=== PATIENT | female | born 1965 | race Caucasian/White ===

== ENCOUNTER → 2018-10-06 | Outpatient (CLI) | payer SELFPAY | LOC: M OUTALCOH 08:01 | PROVIDERS: ATTEND Psychiatry & Neurology Psychiatry | DX: Z03.89 Encounter for observation for other suspected diseases and conditions ruled out (principal) ==

== ENCOUNTER 2018-10-14 13:31 | Outpatient (RCR) | payer SELFPAY | END 2018-10-28 | LOC: M OUTALCOH 13:31 | PROVIDERS: ATTEND Psychiatry & Neurology Psychiatry | DX: Z03.89 Encounter for observation for other suspected diseases and conditions ruled out (principal) ==

== ENCOUNTER → 2020-07-03 | Outpatient (CLI) | payer SELFPAY | LOC: M OUTALCOH 07:49 | PROVIDERS: ATTEND Psychiatry & Neurology Psychiatry | DX: Z02.89 Encounter for other administrative examinations (principal) ==

== ENCOUNTER 2020-07-10 14:20 | Outpatient (RCR) | payer SELFPAY | END 2020-07-28 | LOC: M OUTALCOH 14:20 | PROVIDERS: ATTEND Psychiatry & Neurology Psychiatry | DX: Z03.89 Encounter for observation for other suspected diseases and conditions ruled out (principal) ==

== ENCOUNTER → 2021-03-15 | Outpatient (REF) | payer OTHER | LOC: M SFHCADAM 15:05 | PROVIDERS: ATTEND Physician Assistant | DX: F03.90 Unspecified dementia, unspecified severity, without behavioral disturbance, psychotic disturbance, mood disturbance, and anxiety (principal); Z98.84 Bariatric surgery status; F10.11 Alcohol abuse, in remission; Z13.220 Encounter for screening for lipoid disorders ==

== ENCOUNTER → 2021-03-29 | Outpatient (REF) | payer OTHER ==
[2021-03-29 13:59] LABS: BASO % 0.4 % (0.0-1.0); EOS % 0.4 % (0.0-3.0); HEMATOCRIT 42.6 % (36.0-47.0); HEMOGLOBIN 13.6 g/dl (12.0-15.5); LYMPH # 1.6 10^3/uL (1.5-5.0); LYMPH % 31.9 % (24.0-44.0); MEAN CORPUSCULAR HGB CONC 31.9 g/dl (32.0-36.5); MEAN CORPUSCULAR VOLUME 87.7 fl (80.0-96.0); MONO # 0.5 10^3/uL (0.0-0.8); MONO % 8.9 % (2.0-8.0); NEUTROPHILS % 58.2 % (36.0-66.0); PLATELET COUNT, AUTOMATED 208 10^3/uL (150-450); RED BLOOD COUNT 4.86 10^6/uL (4.00-5.40); WHITE BLOOD COUNT 5.1 10^3/uL (4.0-10.0)
[2021-03-29 14:36] LABS: ALBUMIN 3.9 GM/DL (3.2-5.2); ALT/SGPT 22 U/L (12-78); BILIRUBIN,TOTAL 0.6 MG/DL (0.2-1.0); BLOOD UREA NITROGEN 12 MG/DL (7-18); CALCIUM LEVEL 9.2 MG/DL (8.5-10.1); CARBON DIOXIDE LEVEL 30 MEQ/L (21-32); CHLORIDE LEVEL 108 MEQ/L (98-107); CHOLESTEROL LEVEL 184 MG/DL (<200); CHOLESTEROL RISK RATIO 2.453 (<5); CREATININE FOR GFR 0.81 MG/DL (0.55-1.30); FERRITIN 151 NG/ML (8-252); FREE T4 0.96 NG/DL (0.76-1.46); GLOMERULAR FILTRATION RATE > 60.0 (>51); GLUCOSE, FASTING 83 MG/DL (70-100); HDL CHOLESTEROL 75 MG/DL (>40); IRON (FE) 68 UG/DL (50-170); LDL CHOLESTEROL 95 MG/DL (<100); NON-HDL-C 109 MG/DL; PERCENT SATURATION 19.8 % (13.2-45.0); POTASSIUM SERUM 4.5 MEQ/L (3.5-5.1); SODIUM LEVEL 142 MEQ/L (136-145); TOTAL IRON BINDING CAPACITY 344 UG/DL (250-450); TOTAL PROTEIN 6.4 GM/DL (6.4-8.2); TRIGLYCERIDES LEVEL 69 MG/DL (<150)
[2021-03-29 15:20] LABS: TOTAL 25(OH) VITAMIN D 14.8 NG/ML (30.0-100.0)
[2021-03-29 15:22] LABS: FOLATE 12.1 NG/ML
[2021-03-29 15:35] LABS: VITAMIN B12 LEVEL 274 PG/ML
== END ==
LOC: M LABDRWAD 12:58
PROVIDERS: ATTEND Physician Assistant
DX: F03.90 Unspecified dementia, unspecified severity, without behavioral disturbance, psychotic disturbance, mood disturbance, and anxiety (principal); Z98.84 Bariatric surgery status; F10.11 Alcohol abuse, in remission; Z13.220 Encounter for screening for lipoid disorders

== ENCOUNTER → 2021-04-04 | Outpatient (CLI) | payer OTHER, SELFPAY ==
[~2021-04-04] MED LIST: PROHANCE 279.3MG/ML 15ML VIAL ONE
--- NOTE | 2021-04-04 10:42 | REPVR ---
PROCEDURE INFORMATION: Exam: MR Head Without and With Contrast Exam date and time: 04/04/2021 10:06 AM Age: 56 years old Clinical indication: Altered mental status/memory loss; Other: Dementia TECHNIQUE: Imaging protocol: MR of the head without and with intravenous contrast. Contrast material: PROHANCE; Contrast volume: 13 ml; Contrast route: INTRAVENOUS (IV); COMPARISON: No relevant prior studies available. FINDINGS: Brain: Examination reveals few tiny focal areas of increased T2 signal in bilateral frontal and parietal subcortical and deep white matter. These are nonspecific and could be secondary to chronic migraine headache, vasculitis, Lyme disease, demyelination and focal areas of chronic ischemia. No acute infarction, masses, midline shift or acute hemorrhage is seen. No acute intracranial abnormality is identified. There is no abnormal diffusion weighted signal intensity to suggest an acute ischemic event.The cortical ymles / white matter interfaces are preserved throughout the brain.Intracranial flow voids are well maintained. Cerebral ventricles: The ventricular system is not dilated and is appropriate for the patient's age. Bones/joints: Unremarkable. Paranasal sinuses: Normal as visualized. No acute sinusitis. Mastoid air cells: Normal as visualized. No mastoid effusion. Orbital cavity: Unremarkable. Soft tissues: Unremarkable. IMPRESSION: 1. Examination reveals few tiny focal areas of increased T2 signal in bilateral frontal and parietal subcortical and deep white matter. These are nonspecific and could be secondary to chronic migraine headache, vasculitis, Lyme disease, demyelination and focal areas of chronic ischemia. 2. No acute infarction, masses, midline shift or acute hemorrhage is seen. No acute intracranial abnormality is identified. No abnormal contrast enhancement is seen. Electronically signed by: Jose Wilson On 04/04/2021 10:42:15 AM
== END ==
LOC: M PLAIMG 08:57
PROVIDERS: ATTEND Physician Assistant
DX: F03.90 Unspecified dementia, unspecified severity, without behavioral disturbance, psychotic disturbance, mood disturbance, and anxiety (principal)

== ENCOUNTER → 2021-04-27 | Outpatient (REF) | payer OTHER | LOC: M SFHCADAM 11:24 | PROVIDERS: ATTEND Physician Assistant | DX: R93.89 Abnormal findings on diagnostic imaging of other specified body structures (principal) ==

== ENCOUNTER → 2022-06-19 | Outpatient (REF) | payer OTHER ==
[2022-06-19 13:31] LABS: HEMATOCRIT 41.6 % (36.0-47.0); HEMOGLOBIN 12.9 g/dl (12.0-15.5); MEAN CORPUSCULAR HEMOGLOBIN 26.8 pg (27.0-33.0); MEAN CORPUSCULAR VOLUME 86.3 fl (80.0-96.0); PLATELET COUNT, AUTOMATED 133 10^3/uL (150-450); RED BLOOD COUNT 4.82 10^6/uL (4.00-5.40)
[2022-06-19 13:53] LABS: HEMOGLOBIN A1c 5.2 % (4.0-6.0)
[2022-06-19 14:07] LABS: FREE T4 1.04 NG/DL (0.89-1.76)
[2022-06-19 14:11] LABS: ALBUMIN 3.7 G/DL (3.2-5.2); ALKALINE PHOSPHATASE 96 U/L (46-116); ALT/SGPT 21 U/L (7.0-40); AST/SGOT 24 U/L (<34); BILIRUBIN,TOTAL 0.3 MG/DL (0.3-1.2); BLOOD UREA NITROGEN 11 MG/DL (9-23); CALCIUM LEVEL 8.5 MG/DL (8.5-10.1); CARBON DIOXIDE LEVEL 27 MMOL/L (20-31); CHLORIDE LEVEL 107 MMOL/L (98-107); CHOLESTEROL LEVEL 158 MG/DL (<200); CHOLESTEROL RISK RATIO 2.38 (<5); CREATININE FOR GFR 0.76 MG/DL (0.55-1.30); GLOMERULAR FILTRATION RATE > 60.0 (>51); GLUCOSE, FASTING 79 MG/DL (60-100); HDL CHOLESTEROL 66.3 MG/DL (>40); LDL CHOLESTEROL 74.9 MG/DL (<100); NON-HDL-C 91.7 MG/DL; POTASSIUM SERUM 4.6 MMOL/L (3.5-5.1); SODIUM LEVEL 143 MMOL/L (136-145); TOTAL PROTEIN 6.5 G/DL (5.7-8.2); TRIGLYCERIDES LEVEL 84 MG/DL (<150); VITAMIN B12 LEVEL 607 PG/ML (211-911)
[2022-06-19 14:12] LABS: FOLATE 21.8 NG/ML (>5.4)
== END ==
LOC: M SFHCADAM 09:07
PROVIDERS: ATTEND Physician Assistant
DX: F03.90 Unspecified dementia, unspecified severity, without behavioral disturbance, psychotic disturbance, mood disturbance, and anxiety (principal); Z98.84 Bariatric surgery status; E55.9 Vitamin D deficiency, unspecified; E53.8 Deficiency of other specified B group vitamins; Z13.220 Encounter for screening for lipoid disorders; Z13.1 Encounter for screening for diabetes mellitus; R63.5 Abnormal weight gain

== ENCOUNTER → 2022-08-09 | Outpatient (REF) | payer OTHER | LOC: M SFHCADAM 12:34 | PROVIDERS: ATTEND Physician Assistant | DX: J06.9 Acute upper respiratory infection, unspecified (principal) ==

== ENCOUNTER → 2022-10-16 | Outpatient (REF) | payer OTHER | LOC: M SFHCADAM 13:47 | PROVIDERS: ATTEND Physician Assistant | DX: J02.9 Acute pharyngitis, unspecified (principal) ==

== ENCOUNTER → 2022-10-23 | Outpatient (REF) | payer OTHER | LOC: M SFHCADAM 13:01 | PROVIDERS: ATTEND Family Medicine | DX: J02.9 Acute pharyngitis, unspecified (principal) ==

== ENCOUNTER → 2023-04-08 | Outpatient (REF) | payer OTHER ==
[2023-04-08 13:49] LABS: HEMATOCRIT 43.2 % (36.0-47.0); HEMOGLOBIN 14.1 g/dl (12.0-15.5); MEAN CORPUSCULAR HEMOGLOBIN 28.4 pg (27.0-33.0); MEAN CORPUSCULAR HGB CONC 32.6 g/dl (32.0-36.5); MEAN CORPUSCULAR VOLUME 87.1 fl (80.0-96.0); PLATELET COUNT, AUTOMATED 234 10^3/uL (150-450); RED BLOOD COUNT 4.96 10^6/uL (4.00-5.40); WHITE BLOOD COUNT 5.3 10^3/uL (4.0-10.0)
[2023-04-08 14:09] LABS: ALBUMIN 4.2 G/DL (3.2-5.2); ALKALINE PHOSPHATASE 91 U/L (46-116); ALT/SGPT 34 U/L (7.0-40); AST/SGOT 23 U/L (<34); BILIRUBIN,TOTAL 0.5 MG/DL (0.3-1.2); BLOOD UREA NITROGEN 10 MG/DL (9-23); CALCIUM LEVEL 9.9 MG/DL (8.5-10.1); CARBON DIOXIDE LEVEL 29 MMOL/L (20-31); CHLORIDE LEVEL 106 MMOL/L (98-107); CREATININE FOR GFR 0.71 MG/DL (0.55-1.30); GLOMERULAR FILTRATION RATE > 60.0 (>51); GLUCOSE, FASTING 86 MG/DL (60-100); POTASSIUM SERUM 4.4 MMOL/L (3.5-5.1); SODIUM LEVEL 139 MMOL/L (136-145); TOTAL PROTEIN 6.8 G/DL (5.7-8.2)
[2023-04-08 14:11] LABS: FOLATE 22.3 NG/ML (>5.4); TOTAL 25(OH) VITAMIN D 62.1 NG/ML (20.0-100.0)
[2023-04-08 14:14] LABS: VITAMIN B12 LEVEL > 2000 PG/ML (211-911)
== END ==
LOC: M LABDRWAD 12:47
PROVIDERS: ATTEND Physician Assistant
DX: F51.01 Primary insomnia (principal); Z98.84 Bariatric surgery status; E55.9 Vitamin D deficiency, unspecified; F03.90 Unspecified dementia, unspecified severity, without behavioral disturbance, psychotic disturbance, mood disturbance, and anxiety; F10.11 Alcohol abuse, in remission

== ENCOUNTER → 2024-01-12 | Outpatient (REF) | payer MEDICAID, OTHER ==
[2024-01-12 06:37] LABS: HEMOGLOBIN 11.4 g/dl (12.0-15.5); MEAN CORPUSCULAR HEMOGLOBIN 28.9 pg (27.0-33.0); MEAN CORPUSCULAR HGB CONC 33.5 g/dl (32.0-36.5); MEAN CORPUSCULAR VOLUME 86.3 fl (80.0-96.0); PLATELET COUNT, AUTOMATED 149 10^3/uL (150-450); RED BLOOD COUNT 3.94 10^6/uL (4.00-5.40); WHITE BLOOD COUNT 4.6 10^3/uL (4.0-10.0)
[2024-01-12 06:59] LABS: ALBUMIN 2.9 G/DL (3.2-5.2); ALKALINE PHOSPHATASE 77 U/L (46-116); ALT/SGPT 24 U/L (7.0-40); AST/SGOT 21 U/L (<34); BILIRUBIN,TOTAL 0.6 MG/DL (0.3-1.2); BLOOD UREA NITROGEN 19 MG/DL (9-23); CARBON DIOXIDE LEVEL 25 MMOL/L (20-31); CHLORIDE LEVEL 111 MMOL/L (98-107); CREATININE FOR GFR 0.94 MG/DL (0.55-1.30); GLOMERULAR FILTRATION RATE > 60.0 (>51); GLUCOSE, FASTING 80 MG/DL (60-100); POTASSIUM SERUM 4.4 MMOL/L (3.5-5.1); SODIUM LEVEL 141 MMOL/L (136-145)
[2024-01-12 07:00] LABS: TOTAL 25(OH) VITAMIN D 51.4 NG/ML (20.0-100.0)
[2024-01-12 07:01] LABS: THYROID STIMULATING HORMONE 2.936 uIU/ML (0.55-4.78); VITAMIN B12 LEVEL 863 PG/ML (211-911)
== END ==
LOC: SKLAB6 07:00
PROVIDERS: ATTEND Internal Medicine
DX: E55.9 Vitamin D deficiency, unspecified (principal); E53.8 Deficiency of other specified B group vitamins; F03.90 Unspecified dementia, unspecified severity, without behavioral disturbance, psychotic disturbance, mood disturbance, and anxiety

== ENCOUNTER → 2024-01-26 | Outpatient (REF) | payer OTHER ==
[2024-01-26 15:44] LABS: HEMOGLOBIN 12.5 g/dl (12.0-15.5); MEAN CORPUSCULAR HEMOGLOBIN 29.2 pg (27.0-33.0); MEAN CORPUSCULAR HGB CONC 32.1 g/dl (32.0-36.5); MEAN CORPUSCULAR VOLUME 91.1 fl (80.0-96.0); PLATELET COUNT, AUTOMATED 254 10^3/uL (150-450); RED BLOOD COUNT 4.28 10^6/uL (4.00-5.40); WHITE BLOOD COUNT 6.1 10^3/uL (4.0-10.0)
[2024-01-26 16:10] LABS: FERRITIN 49.4 NG/ML (7.3-270.7)
[2024-01-26 16:15] LABS: IRON (FE) 41 UG/DL (50-170); PERCENT SATURATION 13.4 % (13.2-45.0); TOTAL IRON BINDING CAPACITY 306 UG/DL (250-425)
[2024-01-26 16:22] LABS: ALBUMIN 3.4 G/DL (3.2-5.2); ALKALINE PHOSPHATASE 102 U/L (35-104); ALT/SGPT 43 U/L (7.0-40); AST/SGOT 28 U/L (<34); BILIRUBIN,TOTAL 0.4 MG/DL (0.3-1.2); BLOOD UREA NITROGEN 19 MG/DL (9-23); CALCIUM LEVEL 8.8 MG/DL (8.5-10.1); CARBON DIOXIDE LEVEL 23 MMOL/L (20-31); CHLORIDE LEVEL 112 MMOL/L (98-107); CREATININE FOR GFR 0.84 MG/DL (0.55-1.30); GLOMERULAR FILTRATION RATE > 60.0 (>51); GLUCOSE, FASTING 126 MG/DL (60-100); POTASSIUM SERUM 4.4 MMOL/L (3.5-5.1); SODIUM LEVEL 143 MMOL/L (136-145); TOTAL PROTEIN 6.2 G/DL (5.7-8.2)
== END ==
LOC: SKLAB6 14:47
PROVIDERS: ATTEND Internal Medicine
DX: F03.90 Unspecified dementia, unspecified severity, without behavioral disturbance, psychotic disturbance, mood disturbance, and anxiety (principal)

== ENCOUNTER → 2024-02-20 | Outpatient (REF) | payer OTHER ==
[2024-02-20 08:17] LABS: ALBUMIN 3.1 G/DL (3.2-5.2); ALKALINE PHOSPHATASE 87 U/L (35-104); ALT/SGPT 21 U/L (7.0-40); AST/SGOT 17 U/L (<34); BILIRUBIN,DIRECT 0.2 MG/DL (<0.4); BILIRUBIN,TOTAL 0.5 MG/DL (0.3-1.2); BLOOD UREA NITROGEN 24 MG/DL (9-23); CALCIUM LEVEL 9.2 MG/DL (8.5-10.1); CARBON DIOXIDE LEVEL 30 MMOL/L (20-31); CHLORIDE LEVEL 106 MMOL/L (98-107); CREATININE FOR GFR 0.85 MG/DL (0.55-1.30); GLOMERULAR FILTRATION RATE > 60.0 (>51); GLUCOSE, FASTING 99 MG/DL (60-100); POTASSIUM SERUM 4.5 MMOL/L (3.5-5.1); SODIUM LEVEL 141 MMOL/L (136-145); TOTAL PROTEIN 5.8 G/DL (5.7-8.2)
== END ==
LOC: SKLAB6 07:00
PROVIDERS: ATTEND Internal Medicine
DX: R60.9 Edema, unspecified (principal); R74.01 Elevation of levels of liver transaminase levels

== ENCOUNTER → 2024-04-02 | Outpatient (CLI) | payer OTHER | LOC: M RAD 08:06 | PROVIDERS: ATTEND Nurse Practitioner Family | DX: K74.60 Unspecified cirrhosis of liver (principal) ==

== ENCOUNTER → 2024-05-24 | Outpatient (CLI) | payer MEDICAID, OTHER | LOC: M RAD 09:43 | PROVIDERS: ATTEND Nurse Practitioner Family | DX: M54.2 Cervicalgia (principal) ==

== ENCOUNTER → 2024-05-25 | Outpatient (REF) | payer MEDICAID | LOC: SKLAB6 10:27 | PROVIDERS: ATTEND Internal Medicine | DX: R19.7 Diarrhea, unspecified (principal) ==

== ENCOUNTER → 2024-06-16 | Outpatient (REF) | payer MEDICAID ==
[2024-06-16 09:58] LABS: HEMATOCRIT 40.1 % (36.0-47.0); HEMOGLOBIN 13.3 g/dl (12.0-15.5); MEAN CORPUSCULAR HEMOGLOBIN 27.4 pg (27.0-33.0); MEAN CORPUSCULAR HGB CONC 33.2 g/dl (32.0-36.5); MEAN CORPUSCULAR VOLUME 82.7 fl (80.0-96.0); PLATELET COUNT, AUTOMATED 222 10^3/uL (150-450); RED BLOOD COUNT 4.85 10^6/uL (4.00-5.40); WHITE BLOOD COUNT 6.3 10^3/uL (4.0-10.0)
[2024-06-16 10:31] LABS: ALBUMIN 3.8 G/DL (3.2-5.2); ALKALINE PHOSPHATASE 91 U/L (35-104); ALT/SGPT 22 U/L (7.0-40); AST/SGOT 28 U/L (<34); BILIRUBIN,TOTAL 0.6 MG/DL (0.3-1.2); BLOOD UREA NITROGEN 25 MG/DL (9-23); CALCIUM LEVEL 9.7 MG/DL (8.5-10.1); CARBON DIOXIDE LEVEL 30 MMOL/L (20-31); CHLORIDE LEVEL 97 MMOL/L (98-107); CREATININE FOR GFR 1.01 MG/DL (0.55-1.30); GLOMERULAR FILTRATION RATE > 60.0 (>51); GLUCOSE, FASTING 103 MG/DL (60-100); POTASSIUM SERUM 3.9 MMOL/L (3.5-5.1); SODIUM LEVEL 139 MMOL/L (136-145); TOTAL PROTEIN 6.8 G/DL (5.7-8.2)
[2024-06-16 10:33] LABS: VITAMIN B12 LEVEL 1986 PG/ML (211-911)
[2024-06-16 10:34] LABS: TOTAL 25(OH) VITAMIN D 59.9 NG/ML (20.0-100.0)
== END ==
LOC: SKLAB6 07:41
PROVIDERS: ATTEND Internal Medicine
DX: F03.90 Unspecified dementia, unspecified severity, without behavioral disturbance, psychotic disturbance, mood disturbance, and anxiety (principal)

== ENCOUNTER 2024-06-21 07:24 | Emergency (ER) | payer MEDICAID ==
[2024-06-21] MEDS ORDERED: CYCL5TAB4 PO (07:38)
[2024-06-21] MEDS ORDERED: BENG1CRE TOP (07:53)
[2024-06-21] MEDS ORDERED: VITA200048 PO (07:53)
[2024-06-21] MEDS ORDERED: RA M10TA PO (07:53)
[2024-06-21] MEDS ORDERED: MAGN400O57 PO (08:06)
[2024-06-21] MEDS ORDERED: TORS10TA3 PO (08:06)
[2024-06-21] MEDS ORDERED: SPIR-10 PO (08:06)
[2024-06-21] MEDS ORDERED: ACET-907 PO (08:06)
[2024-06-21] MEDS ORDERED: DONE10TA90 PO (08:06)
[2024-06-21 08:15] VITALS: TEMP 96.9
[2024-06-21] MEDS: NS (Normal Saline) 0.9% 1,000 ML IV ONE ×2 (09:05→11:36)
[2024-06-21 09:28] LABS: BASO % 0.4 % (0.0-1.0); EOS # 0.1 10^3/uL (0.0-0.5); EOS % 1.3 % (0.0-3.0); HEMATOCRIT 41.1 % (36.0-47.0); HEMOGLOBIN 13.1 g/dl (12.0-15.5); LYMPH # 0.8 10^3/uL (1.5-5.0); MEAN CORPUSCULAR HEMOGLOBIN 27.2 pg (27.0-33.0); MEAN CORPUSCULAR HGB CONC 31.9 g/dl (32.0-36.5); MEAN CORPUSCULAR VOLUME 85.3 fl (80.0-96.0); MONO # 0.3 10^3/uL (0.0-0.8); MONO % 6.5 % (2.0-8.0); NEUTROPHILS % 76.4 % (36.0-66.0); PLATELET COUNT, AUTOMATED 179 10^3/uL (150-450); RED BLOOD COUNT 4.82 10^6/uL (4.00-5.40); WHITE BLOOD COUNT 5.2 10^3/uL (4.0-10.0)
[2024-06-21 09:47] LABS: ETHYL ALCOHOL (ETHANOL) < 0.003 % (0.000-0.010)
[2024-06-21 09:48] LABS: CPK CREATINE PHOSPHOKINASE 249 U/L (34-145)
[2024-06-21 09:49] LABS: ALBUMIN 3.5 G/DL (3.2-5.2); ALKALINE PHOSPHATASE 78 U/L (35-104); ALT/SGPT 19 U/L (7.0-40); AST/SGOT 23 U/L (<34); BILIRUBIN,DIRECT 0.4 MG/DL (<0.4); BILIRUBIN,TOTAL 0.9 MG/DL (0.3-1.2); BLOOD UREA NITROGEN 13 MG/DL (9-23); CARBON DIOXIDE LEVEL 32 MMOL/L (20-31); CHLORIDE LEVEL 97 MMOL/L (98-107); CREATININE FOR GFR 0.74 MG/DL (0.55-1.30); GLOMERULAR FILTRATION RATE > 60.0 (>51); GLUCOSE, FASTING 146 MG/DL (60-100); MB/CK RELATIVE INDEX 3.61 (< OR =4); POTASSIUM SERUM 3.4 MMOL/L (3.5-5.1); SALICYLATE LEVEL < 3.0 MG/DL (<30); SODIUM LEVEL 138 MMOL/L (136-145); TOTAL PROTEIN 6.3 G/DL (5.7-8.2)
[2024-06-21 09:50] LABS: THYROID STIMULATING HORMONE 5.882 uIU/ML (0.55-4.78)
[2024-06-21] MEDS: levETIRAcetam INJection 500 MG in IV 1 EA IV ONE (10:16)
[2024-06-21 11:15] LABS: CK-MB VALUE MASS 8.3 NG/ML (<3.6)
[2024-06-21] MEDS ORDERED: KEPP1TAB PO (12:05)
[2024-06-21 12:15] VITALS: BP 97/56; O2SAT 99
== END 2024-06-21 12:20 | disposition home or self-care (01) ==
LOC: M ED 07:24 → EDBD 07:24 → M ED 12:20
DX: G40.89 Other seizures (principal); Z79.1 Long term (current) use of non-steroidal anti-inflammatories (NSAID); Z79.899 Other long term (current) drug therapy
CPT/HCPCS: 70450; 71045; 80048; 80076; 80143; 82077; 82140; 82550; 82553; 84443; 84484; 85025; 93005; 93041; 94760; 96361; 96365; 96366; 99285; J1953

== ENCOUNTER → 2024-08-05 | Outpatient (REF) | payer MEDICAID ==
[~2024-08-05] MED LIST changes: +ACET-907 PO; +BENG1CRE TOP; +CYCL5TAB4 PO; +DONE10TA90 PO; +KEPP1TAB PO; +MAGN400O57 PO; -PROHANCE 279.3MG/ML 15ML VIAL ONE; +RA M10TA PO; +SPIR-10 PO; +TORS10TA3 PO; +VITA200048 PO
[2024-08-05 07:08] LABS: THYROID STIMULATING HORMONE 3.366 uIU/ML (0.55-4.78); THYROXINE (T4) 7.7 UG/DL (4.5-10.9)
[2024-08-05 08:08] LABS: MAGNESIUM LEVEL 1.9 MG/DL (1.8-2.4)
== END ==
LOC: SKLAB6 07:45
PROVIDERS: ATTEND Internal Medicine
DX: E03.9 Hypothyroidism, unspecified (principal)

== ENCOUNTER → 2024-12-03 | Outpatient (REF) | payer MEDICARE, MEDICAID | LOC: M SFHCADAM 10:52 | PROVIDERS: ATTEND Physician Assistant | DX: Z53.9 Procedure and treatment not carried out, unspecified reason (principal) ==

== ENCOUNTER → 2024-12-06 | Outpatient (REF) | payer MEDICARE, MEDICAID | LOC: M SFHCADAM 07:51 | PROVIDERS: ATTEND Physician Assistant | DX: J02.9 Acute pharyngitis, unspecified (principal) ==

== ENCOUNTER → 2024-12-06 | Outpatient (CLI) | payer MEDICARE, MEDICAID ==
[2024-12-06 14:22] LABS: BASO # 0.0 10^3/uL (0.0-0.2); BASO % 0.3 % (0.0-1.0); EOS # 0.1 10^3/uL (0.0-0.5); EOS % 1.9 % (0.0-3.0); LYMPH # 1.6 10^3/uL (1.5-5.0); LYMPH % 27.2 % (24.0-44.0); MONO # 0.5 10^3/uL (0.0-0.8); MONO % 8.6 % (2.0-8.0); NEUTROPHILS # 3.6 10^3/uL (1.5-8.5); NEUTROPHILS % 61.8 % (36.0-66.0); PLATELET COUNT, AUTOMATED 213 10^3/uL (150-450)
[2024-12-06 15:02] LABS: TOTAL 25(OH) VITAMIN D 61.5 NG/ML (20.0-100.0)
[2024-12-06 15:04] LABS: FREE T4 1.02 NG/DL (0.89-1.76)
[2024-12-06 15:05] LABS: ALT/SGPT 37.0 U/L (7.0-40); AST/SGOT 24.0 U/L (<34); CALCIUM LEVEL 9.6 MG/DL (8.5-10.1); CARBON DIOXIDE LEVEL 29.0 MMOL/L (20-31); CHLORIDE LEVEL 112.0 MMOL/L (98-107); CHOLESTEROL LEVEL 156.0 MG/DL (<200); CHOLESTEROL RISK RATIO 2.09 (<5); CREATININE FOR GFR 0.92 MG/DL (0.55-1.30); GLOMERULAR FILTRATION RATE 72.6 (>51); LDL CHOLESTEROL 70.7 MG/DL (<100); NON-HDL-C 81.5 MG/DL; POTASSIUM SERUM 4.0 MMOL/L (3.5-5.1); SODIUM LEVEL 153.0 MMOL/L (136-145); TRIGLYCERIDES LEVEL 54.0 MG/DL (<150)
== END ==
LOC: M LABDRWAD 08:07
PROVIDERS: ATTEND Physician Assistant
DX: E03.9 Hypothyroidism, unspecified (principal); F03.90 Unspecified dementia, unspecified severity, without behavioral disturbance, psychotic disturbance, mood disturbance, and anxiety; E55.9 Vitamin D deficiency, unspecified

== ENCOUNTER 2024-12-15 16:19 | Inpatient (IN) | payer MEDICARE, MEDICAID ==
[2024-12-15 20:05] LABS: BASO # 0.0 10^3/uL (0.0-0.2); BASO % 0.5 % (0.0-1.0); EOS # 0.1 10^3/uL (0.0-0.5); EOS % 1.6 % (0.0-3.0); LYMPH # 1.8 10^3/uL (1.5-5.0); LYMPH % 29.0 % (24.0-44.0); MONO # 0.6 10^3/uL (0.0-0.8); MONO % 9.1 % (2.0-8.0); NEUTROPHILS # 3.7 10^3/uL (1.5-8.5); NEUTROPHILS % 59.5 % (36.0-66.0); PLATELET COUNT, AUTOMATED 192 10^3/uL (150-450)
[2024-12-15 20:28] LABS: ETHYL ALCOHOL (ETHANOL) < 0.003 % (0.000-0.010)
[2024-12-15 20:29] LABS: SALICYLATE LEVEL < 3.0 MG/DL (<30)
[2024-12-15 20:30] LABS: ALT/SGPT 24 U/L (7.0-40); AST/SGOT 23 U/L (<34); CALCIUM LEVEL 8.7 MG/DL (8.5-10.1); CARBON DIOXIDE LEVEL 28 MMOL/L (20-31); CHLORIDE LEVEL 110 MMOL/L (98-107); CREATININE FOR GFR 0.82 MG/DL (0.55-1.30); GLOMERULAR FILTRATION RATE 83.4 (>51); POTASSIUM SERUM 3.7 MMOL/L (3.5-5.1); SODIUM LEVEL 143 MMOL/L (136-145)
[2024-12-15 23:02] LABS: KETONE, URINE AUTO RFX NEGATIVE (NEGATIVE); LEUKOCYTE ESTERASE UR AUTO RFX NEGATIVE (NEGATIVE); MUCUS, URINE RFX SMALL (NEGATIVE); NITRITE, URINE AUTO RFX NEGATIVE (NEGATIVE); RBC, URINE AUTO RFX 12 /HPF (0-3); SQUAM EPITHELIAL CELL UR AURFX 0 /HPF (0-6); WBC, URINE AUTO RFX 1 /HPF (0-3)
[2024-12-15 23:17] LABS: AMPHETAMINES LEVEL URINE NEGATIVE (NEGATIVE); BARBITURATES URINE NEGATIVE (NEGATIVE)
[2024-12-15 23:18] LABS: BENZODIAZEPINES URINE NEGATIVE (NEGATIVE); COCAINE METABOLITE URINE NEGATIVE (NEGATIVE); METHADONE URINE NEGATIVE (NEGATIVE); OPIATES URINE NEGATIVE (NEGATIVE); PHENCYCLIDINE URINE NEGATIVE (NEGATIVE)
[2024-12-15 23:19] LABS: CANNABINOIDS URINE NEGATIVE (NEGATIVE)
[2024-12-16] MEDS ORDERED: KEPP1TAB PO (08:38)
[2024-12-16] MEDS ORDERED: ARIC1TAB PO (08:38)
[2024-12-16] MEDS ORDERED: QUET1TAB17 PO (08:38)
[2024-12-16] MEDS ORDERED: SYNT50TA PO (08:38)
[2024-12-16] MEDS ORDERED: MULTTAB61 PO (08:38)
[2024-12-16] MEDS ORDERED: HOME MED LIST COMPLETE! XX SCH (08:40)
[2024-12-16] MEDS: OLANZapine INTRAMUSCULAR 10MG VIAL IM ONE (10:25)
[2024-12-16] MEDS: VALPROIC ACID 250MG CAP PO SCH (12:38)
[2024-12-16] MEDS: DONEPEZIL 5 MG TAB PO SCH (12:38)
[2024-12-16] MEDS: LEVOTHYROXINE 50 MCG TABLET (0.05 MG) PO SCH (13:09)
[2024-12-16] MEDS: diphenhydrAMINE 50 MG/ML VIAL IM ONE (14:45)
[2024-12-16] MEDS: OLANZapine 5 MG TAB PO PRN (17:43)
[2024-12-16] MEDS: DIVALPROEX 500 MG TAB PO SCH (21:25)
[2024-12-16] MEDS: OLANZapine 5 MG TAB PO SCH (21:25)
[2024-12-18 08:25] LABS: BASO # 0.0 10^3/uL (0.0-0.2); BASO % 0.2 % (0.0-1.0); EOS # 0.1 10^3/uL (0.0-0.5); EOS % 1.1 % (0.0-3.0); LYMPH # 1.7 10^3/uL (1.5-5.0); LYMPH % 27.5 % (24.0-44.0); MONO # 0.5 10^3/uL (0.0-0.8); MONO % 7.5 % (2.0-8.0); NEUTROPHILS # 3.9 10^3/uL (1.5-8.5); NEUTROPHILS % 63.4 % (36.0-66.0); PLATELET COUNT, AUTOMATED 223 10^3/uL (150-450)
[2024-12-18 08:37] LABS: CALCIUM LEVEL 8.7 MG/DL (8.5-10.1); CARBON DIOXIDE LEVEL 28.0 MMOL/L (20-31); CHLORIDE LEVEL 107.0 MMOL/L (98-107); CREATININE FOR GFR 1.08 MG/DL (0.55-1.30); GLOMERULAR FILTRATION RATE 59.9 (>51); POTASSIUM SERUM 3.9 MMOL/L (3.5-5.1); SODIUM LEVEL 139.0 MMOL/L (136-145)
[2024-12-18] MEDS: OLANZapine INTRAMUSCULAR 10MG VIAL IM PRN ×2 (13:24→21:33)
[2024-12-18 15:30] VITALS: TEMP 97.3; O2SAT 92
[2024-12-19 03:29] VITALS: BP 98/68; TEMP 97.3; O2SAT 98
[2024-12-19] MEDS: OLANZapine ORAL DISINTEGRATING TAB 5MG PO PRN (10:42)
[2024-12-19 12:00] VITALS: TEMP 97.7; O2SAT 96
[2024-12-19 16:40] VITALS: BP 140/104
[2024-12-19] MEDS: DIVALPROEX SPRINKLE 125 MG CAP PO SCH (20:51)
[2024-12-20 12:00] VITALS: BP 136/101; TEMP 97.5; O2SAT 93
[2024-12-20] MEDS: risperiDONE 0.5 MG TAB PO SCH (19:32)
[2024-12-20 20:04] VITALS: TEMP 98.4
[2024-12-20] MEDS: HEPARIN SOD 5000 UNITS/ML 1 ML VIAL/SYRINGE SQ SCH (20:58)
[2024-12-21 05:25] VITALS: BP 97/58; TEMP 97.7; O2SAT 100
[2024-12-21 12:32] VITALS: BP 118/64; TEMP 97.5; O2SAT 100
[2024-12-22 17:33] LABS: KETONE, URINE AUTO RFX TRACE mg/dL (NEGATIVE); MUCUS, URINE RFX SMALL (NEGATIVE); NITRITE, URINE AUTO RFX NEGATIVE (NEGATIVE); RBC, URINE AUTO RFX TNTC /HPF (0-3); SQUAM EPITHELIAL CELL UR AURFX 0 /HPF (0-6)
[2024-12-22 17:36] LABS: LEUKOCYTE ESTERASE UR AUTO RFX 1+ (NEGATIVE); WBC, URINE AUTO RFX TNTC /HPF (0-3)
[2024-12-23 06:40] VITALS: BP 103/54; TEMP 97.3; O2SAT 99
[2024-12-23] MEDS: ACETAMINOPHEN 325 MG TAB PO PRN (17:01)
[2024-12-24 05:49] VITALS: BP 110/85; TEMP 97.5
[2024-12-24] MEDS: CEFDINIR 300 MG CAP PO SCH (15:51)
[2024-12-24] MEDS ORDERED: PILL CUTTER 1 EACH XX ONE (21:01)
[2024-12-24] MEDS: risperiDONE 0.5 MG TAB PO SCH (21:04)
[2024-12-25 06:48] VITALS: BP 97/57; TEMP 97.2; O2SAT 99
[2024-12-26 06:50] VITALS: BP 97/57; TEMP 97.7; O2SAT 97
[2024-12-27 06:52] VITALS: BP 92/51; TEMP 97.3; O2SAT 100
[2024-12-28 05:27] VITALS: BP 92/52; TEMP 97.3; O2SAT 97
[2024-12-29] VITALS (10 sets, daily range): BP systolic 80–110; BP diastolic 52–60; TEMP 96.8–97.8; O2SAT 92–100
[2024-12-29] MEDS: LR 1,000 ML IV SCH ×2 (06:53→20:40)
[2024-12-29 20:44] LABS: VENOUS BASE EXCESS 2.8 (-2.0-2.0); VENOUS HCO3 27.7 MMOL/L (23.0-27.0); VENOUS O2 SATURATION 95.7 % (60.0-80.0); VENOUS PARTIAL PRESSURE CO2 43.7 mmHg (38.0-50.0); VENOUS PARTIAL PRESSURE O2 86.6 mmHg (30.0-50.0); VENOUS PH 7.420 UNITS (7.330-7.430); VENOUS STANDARD HCO3 27.0 MMOL/L; VENOUS TOTAL CO2 29.1 MMOL/L (24.0-28.0)
[2024-12-29 20:48] LABS: BASO # 0.0 10^3/uL (0.0-0.2); BASO % 0.6 % (0.0-1.0); EOS # 0.1 10^3/uL (0.0-0.5); EOS % 1.4 % (0.0-3.0); LYMPH # 1.2 10^3/uL (1.5-5.0); LYMPH % 33.7 % (24.0-44.0); MONO # 0.3 10^3/uL (0.0-0.8); MONO % 9.7 % (2.0-8.0); NEUTROPHILS # 1.9 10^3/uL (1.5-8.5); NEUTROPHILS % 54.0 % (36.0-66.0); PLATELET COUNT, AUTOMATED 152 10^3/uL (150-450)
[2024-12-29 21:20] LABS: ALT/SGPT 33.0 U/L (7.0-40); AST/SGOT 47.0 U/L (<34); CALCIUM LEVEL 8.0 MG/DL (8.5-10.1); CARBON DIOXIDE LEVEL 28.0 MMOL/L (20-31); CHLORIDE LEVEL 106.0 MMOL/L (98-107); CREATININE FOR GFR 0.83 MG/DL (0.55-1.30); GLOMERULAR FILTRATION RATE 82.2 (>51); POTASSIUM SERUM 4.4 MMOL/L (3.5-5.1); SODIUM LEVEL 137.0 MMOL/L (136-145)
[2024-12-29] MEDS: cefTRIAXone SOD 1 GM in DEXTROSE 5% (D5W) ADV/MINI-BAG 50 ML IV SCH (22:48)
[2024-12-30 04:48] VITALS: BP 88/54; TEMP 97.5; O2SAT 100
[2024-12-30 12:00] VITALS: BP 98/60; TEMP 96.8; O2SAT 94
[2024-12-30 12:44] VITALS: BP 93/50
[2024-12-30] MEDS: HALOPERIDOL LACTATE 5 MG/ML VIAL IM STA (16:23)
[2024-12-30 19:45] VITALS: BP 124/78; TEMP 97.5; O2SAT 97
[2024-12-30] MEDS: RAMELTEON 8 MG TAB PO PRN (21:19)
[2024-12-31 06:30] VITALS: BP 150/49; TEMP 97.7; O2SAT 96
[2025-01-01 03:37] VITALS: BP 109/70; TEMP 97.3; O2SAT 99
[2025-01-02 04:34] VITALS: BP 112/71; TEMP 97.2; O2SAT 100
[2025-01-03 03:08] VITALS: BP 100/60; TEMP 97; O2SAT 97
[2025-01-04 04:34] VITALS: BP 101/55; TEMP 97.2; O2SAT 98
[2025-01-05 04:39] VITALS: BP 107/64; TEMP 97.5; O2SAT 96
[2025-01-06 05:27] VITALS: BP 94/55; TEMP 97.5; O2SAT 90
[2025-01-06 20:28] VITALS: BP 89/48; TEMP 97.9; O2SAT 99
[2025-01-06 20:50] LABS: PLATELET COUNT, AUTOMATED 145 10^3/uL (150-450)
[2025-01-06 21:02] LABS: INR 0.93
[2025-01-06 21:17] LABS: ALT/SGPT 29 U/L (7.0-40); AST/SGOT 24 U/L (<34); CALCIUM LEVEL 8.6 MG/DL (8.5-10.1); CARBON DIOXIDE LEVEL 26 MMOL/L (20-31); CHLORIDE LEVEL 103 MMOL/L (98-107); CREATININE FOR GFR 0.74 MG/DL (0.55-1.30); GLOMERULAR FILTRATION RATE > 90.0 (>51); POTASSIUM SERUM 4.3 MMOL/L (3.5-5.1); SODIUM LEVEL 138 MMOL/L (136-145)
[2025-01-06 22:21] LABS: KETONE, URINE AUTO RFX NEGATIVE (NEGATIVE); MUCUS, URINE RFX SMALL (NEGATIVE); NITRITE, URINE AUTO RFX NEGATIVE (NEGATIVE); RBC, URINE AUTO RFX TNTC /HPF (0-3); SQUAM EPITHELIAL CELL UR AURFX 2 /HPF (0-6); TRANSITIONAL EPITHELIAL AU RFX 4 /HPF
[2025-01-06 22:22] LABS: LEUKOCYTE ESTERASE UR AUTO RFX 1+ (NEGATIVE); WBC, URINE AUTO RFX TNTC /HPF (0-3)
[2025-01-07 04:18] VITALS: BP 92/54; TEMP 97.5; O2SAT 96
[2025-01-08 06:02] VITALS: BP 94/53; TEMP 97.5; O2SAT 99
[2025-01-08] MEDS: HALOPERIDOL 5 MG TAB PO ONE (18:01)
[2025-01-09 06:09] VITALS: BP 93/48; TEMP 97.2; O2SAT 100
[2025-01-09 08:19] LABS: PLATELET COUNT, AUTOMATED 140 10^3/uL (150-450)
[2025-01-09 08:44] LABS: CALCIUM LEVEL 8.6 MG/DL (8.5-10.1); CARBON DIOXIDE LEVEL 30 MMOL/L (20-31); CHLORIDE LEVEL 105 MMOL/L (98-107); CREATININE FOR GFR 0.92 MG/DL (0.55-1.30); GLOMERULAR FILTRATION RATE 72.2 (>51); POTASSIUM SERUM 4.3 MMOL/L (3.5-5.1); SODIUM LEVEL 143 MMOL/L (136-145)
[2025-01-09 12:12] LABS: VALPROIC ACID (DEPAKOTE) 62.5 UG/ML (50.0-100.0)
[2025-01-09 12:13] LABS: ALT/SGPT 17 U/L (7.0-40); AST/SGOT 15 U/L (<34)
[2025-01-09] MEDS: FOSFOMYCIN TROMETHAMINE 3 GM POWDER PACKET PO SCH (13:53)
[2025-01-09 20:00] VITALS: BP 90/50; TEMP 97.5; O2SAT 100
[2025-01-09 21:00] VITALS: BP 92/54
[2025-01-11 05:18] VITALS: BP 88/46; TEMP 97.3; O2SAT 98
[2025-01-11 06:12] VITALS: BP 97/61
[2025-01-12 04:40] VITALS: BP 96/58; TEMP 97.4; O2SAT 97
[2025-01-13 06:00] VITALS: BP 93/58; TEMP 97.3; O2SAT 99
[2025-01-13] MEDS ORDERED: DIVA125C6 PO (07:32)
[2025-01-13] MEDS ORDERED: RISP0.5T82 PO (07:32)
[2025-01-13] MEDS ORDERED: [UNRECOGNIZED DRUG - CODE] IM (07:32)
[2025-01-13] MEDS ORDERED: RAME8TAB2 PO (07:32)
== END 2025-01-13 09:42 | DRG 57 ==
LOC: EDBD 16:19 → M ED 16:19 → M ED INP 12-17 15:44 → EEVIPCON 12-17 15:44 → M MSPAV 12-18 15:28
PROVIDERS: ADMIT Internal Medicine Nephrology; ATTEND Student in an Organized Health Care Education/Training Program
DX: G30.9 Alzheimer's disease, unspecified (principal); F02.C2 Dementia in other diseases classified elsewhere, severe, with psychotic disturbance; F02.C11 Dementia in other diseases classified elsewhere, severe, with agitation; N39.0 Urinary tract infection, site not specified; F10.11 Alcohol abuse, in remission; E03.9 Hypothyroidism, unspecified; K59.00 Constipation, unspecified; G40.909 Epilepsy, unspecified, not intractable, without status epilepticus; G47.00 Insomnia, unspecified; Z79.890 Hormone replacement therapy; Z79.899 Other long term (current) drug therapy; Z98.84 Bariatric surgery status; E55.9 Vitamin D deficiency, unspecified; E53.9 Vitamin B deficiency, unspecified; Z90.49 Acquired absence of other specified parts of digestive tract; B96.20 Unspecified Escherichia coli [E. coli] as the cause of diseases classified elsewhere; Z75.1 Person awaiting admission to adequate facility elsewhere